=== PATIENT | male | born 1955 | race Caucasian/White ===

== ENCOUNTER 2020-08-24 03:19 | Inpatient (IN) | payer OTHER, MEDICARE ==
[2020-08-24] VITALS (29 sets, daily range): BP systolic 136–180; BP diastolic 75–106
[~2020-08-24] VITALS: Ht 182.9 cm; Wt 82.9 kg
[2020-08-24 03:37] LABS: ABSOLUTE BASOPHILS 0.1 thou/uL (0.0-0.2); ABSOLUTE EOSINOPHILS 0.5 thou/uL (0.0-0.7); ABSOLUTE LYMPHOCYTES 3.4 thou/uL (0.8-5.3); ABSOLUTE MONOCYTES 0.9 thou/uL (0.0-1.2); ABSOLUTE NEUTROPHILS 6.3 thou/uL (1.6-8.1); BASOPHILS 0.8 %; EOSINOPHILS 4.6 %; HEMATOCRIT 47.3 % (42.0-52.0); HEMOGLOBIN 15.6 gm/dL (14.0-18.0); LYMPHOCYTES 30.2 %; MCH 27.1 pg (26.0-34.0); MCV 82.1 fL (80.0-100.0); MONOCYTES 7.7 %; MPV 7.3 fl. (7.2-11.1); NUCLEATED RBCS 0 /100WBC; PLATELET COUNT* 266 thou/uL (150-400); POLYS 56.7 %; RBC 5.76 mil/uL (4.50-6.00); RDW-CV 15.1 % (10.5-14.5); WBC 11.1 thou/uL (4.0-11.0)
[2020-08-24 03:50] LABS: CALCIUM 9.7 mg/dL (8.5-10.1); CREATININE 1.2 mg/dL (0.6-1.3); POTASSIUM 3.3 mmol/L (3.5-5.1)
[2020-08-24 03:55] LABS: ALBUMIN 3.4 g/dL (3.4-5.0); MAGNESIUM 2.1 mg/dL (1.8-2.4); TOTAL BILIRUBIN 0.9 mg/dL (<0.1-1.0); TOTAL PROTEIN 8.1 g/dL (6.4-8.2)
[2020-08-24 03:57] LABS: APTT 24.3 Seconds (25.0-31.3); PROTIME 10.8 Seconds (9.20-11.50)
[2020-08-24 04:28] LABS: URINE BILIRUBIN NEGATIVE (Negative); URINE BLOOD NEGATIVE (Negative); URINE CLARITY CLEAR; URINE COLOR YELLOW; URINE GLUCOSE-RANDOM 3+ (Negative); URINE KETONES NEGATIVE (Negative); URINE LEUKOCYTES-REFLEX NEGATIVE (Negative); URINE NITRITE-REFLEX NEGATIVE (Negative); URINE PROTEIN NEGATIVE (Negative); URINE UROBILINOGEN 0.2 E.U./dl (0.2-1.0)
[2020-08-24] MEDS ORDERED: METFORMIN HCL500 M3 PO (04:32)
[2020-08-24] MEDS ORDERED: TRESIBA100 UNIT/1 SUBQ (04:32)
[2020-08-24] MEDS ORDERED: FARXIGA5 MG PO (04:32)
[2020-08-24] MEDS ORDERED: PEPCID20 MG PO (04:32)
[2020-08-24 07:48] LABS: CHOLESTEROL 176 mg/dL (<200); HDL CHOLESTEROL 45 mg/dL (>40); LDL CHOLESTEROL 110 mg/dL (<100); TC:HDL 3.9 Ratio (Not establshd); TRIGLYCERIDE 105 mg/dL (<150); VLDL 21 mg/dL (<40)
[2020-08-24 07:56] LABS: SERUM ASSESSMENT Clear
--- NOTE | 2020-08-24 10:20 | EKG ---
[place] [address] ELECTROCARDIOGRAM REPORT Name: ANTONELLA AMOR Room: [address] ADM IN [facility].#: [id number] Admission: 08/24/20 Attend Phys: Diego Huff, Discharge: Date of : 53 Date of Service: 08/24/20 0425 Report #: [id number] THIS REPORT FOR: //name// [facility] ED Test Date: 2020-08-24 Test Time: 04:25:54 Pat Name: ANTONELLA AMOR Department: Room: [facility] Gender: M Mangle Feeder: ARNOLDO : 1955 Requested By: Andreea Adams Order Number: [id number] MD: Jamal Ace Measurements Intervals [place] Rate: 96 P: 82 TN: 148 QRS: 124 QRSD: 91 T: 57 QT: 345 QTc: 436 Interpretive Statements Sinus rhythm Probable left atrial enlargement Right axis deviation No previous ECG available for comparison Electronically Signed On 08-24-2020 10:20:07 CDT by Jamal Ace [email or web address] <ELECTRONICALLY SIGNED> By: Jamal Ace MD, [facility] 08/24/20 1020 0425 0425 Jamal Ace MD, [facility] /EPI
--- NOTE | 2020-08-24 17:32 | 2DMMODE ---
[place] [address] 2 D/M-MODE ECHOCARDIOGRAM Name: ANTONELLA AMOR Room: [address] IN [facility]#: [id number] Admission: 08/24/20 Attend Phys: Diego Huff, Discharge: Date of : 53 Date of Service: 08/24/20 1731 Report #: [id number] THIS REPORT FOR: cc: Garcia Flor MD, James A. MD Liston, Michael J. MD [facility] ~ APPROVED REPORT Study performed: 08/24/2020 10:22:03 EXAM: Comprehensive 2D, Doppler, and color-flow Echocardiogram Patient Location: In-Patient Room #: [facility] Status: routine BSA: 2.02 HR: 81 bpm BP: 164/94 mmHg Rhythm: NSR Indications CVA/TIA Echo Enhancing Agent Indication: Rule out Shunt Agent(s) / Amount(s) Used: Agitated Saline 10 cc 2D Dimensions IVSd: 12.33 (7-11mm) LVOT Diam: 20.69 (18-24mm) LVDd: 43.57 mm PWd: 9.29 (7-11mm) Ascending Ao: 26.51 (22-36mm) LVDs: 29.45 (25-40mm) Volumes Left Atrial Volume (Systole) LA ESV Index: 22.30 mL/m2 Aortic Valve AoV Peak Berto.: 1.21 m/s AO Peak Gr.: 5.86 mmHg LVOT Max P.00 mmHg AO Mean Gr.: 3.29 mmHg LVOT Mean P.43 mmHg LVOT Max V: 0.87 m/s AO V2 VTI: 21.52 cm LVOT Mean V: 0.55 m/s PETER (VTI): 2.62 cm2 LVOT V1 VTI: 16.76 [place] [address] 2 D/M-MODE ECHOCARDIOGRAM Name: ANTONELLA AMOR Room: [address] IN [facility]#: [id number] Admission: 08/24/20 Attend Phys: Diego Huff, Discharge: Date of : 53 Date of Service: 08/24/20 1731 Report #: [id number] Mitral Valve E/A Ratio: 1.05 MV Decel. Time: 193.07 ms MV E Max Berto.: 0.77 m/s MV PHT: 55.99 ms MVA (PHT): 3.93 cm2 TDI E/Lateral E': 8.56 E/Medial E': 7.70 Medial E' Berto.: 0.10 m/s Lateral E' Berto.: 0.09 m/s Pulmonary Valve PV Peak Berto.: 0.85 m/s PV Peak Gr.: 2.89 mmHg Left Ventricle The left ventricle is normal size. There is normal LV segmental wall motion. There is normal left ventricular wall thickness. Left ventricular systolic function is normal. LVEF is 60-65%. Transmitral Doppler flow pattern suggests impaired LV relaxation. Right Ventricle The right ventricle is normal size. The right ventricular systolic function is normal. Atria The left atrium size is normal. The interatrial septum is intact with no evidence for an atrial septal defect. The right atrium size is normal. Aortic Valve Mild aortic valve sclerosis. No aortic regurgitation is present. There is no aortic valvular stenosis. Mitral Valve The mitral valve is normal in structure. Trace mitral regurgitation. No evidence of mitral valve stenosis. Tricuspid Valve The tricuspid valve is normal in structure. Unable to assess PA pressure. Trace tricuspid regurgitation. Pulmonic Valve The pulmonary valve is normal in structure. There is no pulmonic [place] [address] 2 D/M-MODE ECHOCARDIOGRAM Name: ANTONELLA AMOR Room: [address] IN [facility]#: [id number] Admission: 08/24/20 Attend Phys: Diego Huff, Discharge: Date of : 53 Date of Service: 08/24/20 1731 Report #: [id number] Great Vessels The aortic root is normal in size. IVC is normal in size and collapses >50% with inspiration. Pericardium There is no pericardial effusion. <Conclusion> The left ventricle is normal size. There is normal left ventricular wall thickness. Left ventricular systolic function is normal. LVEF is 60-65%. Transmitral Doppler flow pattern suggests impaired LV relaxation. The interatrial septum is intact with no evidence for an atrial septal defect. Mild aortic valve sclerosis. Trace mitral regurgitation. Trace tricuspid regurgitation. IVC is normal in size and collapses >50% with inspiration. <ELECTRONICALLY SIGNED> By: Baltazar Vanessa MD, FACC 08/24/20 173 173 173 Baltazar Vanessa MD, FACC /INF
[2020-08-25] VITALS (16 sets, daily range): BP systolic 134–170; BP diastolic 72–94
[2020-08-25 04:17] LABS: HEMATOCRIT 45.9 % (42.0-52.0); MCHC 32.6 g/dL (28.0-37.0); MPV 7.4 fl. (7.2-11.1); RBC 5.54 mil/uL (4.50-6.00); RDW-CV 15.6 % (10.5-14.5); WBC 12.5 thou/uL (4.0-11.0)
[2020-08-25 04:29] LABS: CALCIUM 8.6 mg/dL (8.5-10.1); CREATININE 0.9 mg/dL (0.6-1.3); MAGNESIUM 1.9 mg/dL (1.8-2.4); POTASSIUM 3.1 mmol/L (3.5-5.1)
[2020-08-26 00:45] VITALS: BP 145/80
[2020-08-26 04:58] VITALS: BP 156/87
[2020-08-26 08:00] VITALS: BP 134/74
[2020-08-26] MEDS ORDERED: LIPITOR 40 MG T40 M1 PO (08:57)
[2020-08-26] MEDS ORDERED: COLACE 100 MG100 MG PO (08:57)
[2020-08-26] MEDS ORDERED: ASA81BEC PO (08:57)
[2020-08-26] MEDS ORDERED: PLAVIX 75 MG TA75 M1 PO (08:57)
[2020-08-26 12:24] VITALS: BP 137/76
[2020-08-26 16:44] VITALS: BP 165/91
[2020-08-26 20:00] VITALS: BP 157/88
[2020-08-27] VITALS (7 sets, daily range): BP systolic 137–158; BP diastolic 73–96
[2020-08-28 04:10] LABS: HEMATOCRIT 47.2 % (42.0-52.0); HEMOGLOBIN 15.3 gm/dL (14.0-18.0); MCH 26.9 pg (26.0-34.0); MCHC 32.3 g/dL (28.0-37.0); MCV 83.2 fL (80.0-100.0); MPV 7.4 fl. (7.2-11.1); RBC 5.68 mil/uL (4.50-6.00); RDW-CV 15.3 % (10.5-14.5); WBC 11.7 thou/uL (4.0-11.0)
[2020-08-28 04:33] LABS: CALCIUM 8.6 mg/dL (8.5-10.1); MAGNESIUM 1.8 mg/dL (1.8-2.4)
[2020-08-28 05:24] VITALS: BP 145/86
[2020-08-28 08:00] VITALS: BP 180/98
[2020-08-28 12:00] VITALS: BP 154/86
[2020-08-28 16:06] LABS: CREATININE, URINE 0.57 g/L (0.30-3.00)
--- NOTE | 2020-08-29 19:10 | CON ---
[facility] [address] [place] [address] CONSULTATION Name: ANTONELLA AMOR Room: [address] IN .R.#: [id number] Admission: 08/24/20 Attend Phys: Diego Huff MD Discharge: 08/28/20 Date of : 53 Report #: [id number] THIS REPORT FOR: cc: Garcia Flor MD, James A. MD ~ Shakir Elizalde MD DATE OF SERVICE: 08/24/2020 HISTORY OF PRESENT ILLNESS: This is a 65-year-old male patient for whom a consultation was requested for stroke. I talked to Emergency Room, Dr. Adams before, and Dr. Adams couple of times. I talked to admitting doctor, Dr. Crews before and after seeing the patient. I talked to the night nurse. I also talked to the day nurse. I reviewed the films with the radiologist. I called the patient's and took the history from her and subsequently I got the MRI and discussed that with her. The history is summarized in the patient's ER notes and indicates that the patient was last seen well at 12:30 and then he woke up with acute right hemiplegia and aphasia. He was within TPA window for 4-1/2 hour. I talked to Dr. Adams and asked her to look for any contraindication and exclusion criteria and if none is found, then he should be given TPA and should be evaluated for any thrombus. This patient received TPA. The patient had a CT angiogram of the head and neck, which I reviewed with the radiologist. The patient did not have a thrombus, which requires any thrombectomy, but the vertebral artery systems appeared to be having some stenosis, and I got an MRI done for comparison and that will be described later. REVIEW OF SYSTEMS: Positive for diabetes. He used to take an aspirin at one time, but for some reason he stopped taking it. He is a diabetic, but does not check his blood sugar very often. It does not look like he has any other major vascular risk factor. He was not hypoglycemic when the ambulance people came in and; in fact, his blood sugar was about 200 at that time. That was his relevant 14-point review of system. PAST MEDICAL HISTORY: Negative for any stroke. FAMILY HISTORY: Unremarkable. SOCIAL HISTORY: As I understand, he does not smoke or abuse alcohol. PHYSICAL EXAMINATION: Indicates he is alert. His speech is hesitant, but he is able to talk some. He talks softly, but he says he always talks [place], [place] [address] CONSULTATION Name: ANTONELLA AMOR Room: [address]#: [id number] Admission: 08/24/20 Attend Phys: Diego Huff MD Discharge: 08/28/20 Date of : 53 Report #: [id number] does take him effort to bring his words out. But most of the time, he is able to bring his word out, but on other occasion, he hesitates. This is an improvement. He is weak in the right upper and right lower extremity, but apparently that is improved and the strength is about 3/5. He was still able to do reasonably well with position sense. There is no carotid bruit. There is no meningeal sign. Cardiac examination does not appear to be showing any atrial fibrillation. I got a stat MRI of the brain done. I also reviewed those films and the report and it does demonstrate finding consistent with lacunar CVA subcortical area on the left side, which will correlate with the patient's clinical symptoms. At first, I talked to the patient himself and subsequently to the patient's . IMPRESSION AND PLAN: The patient has a lacunar cerebrovascular accident. Lacunar cerebrovascular accident can fluctuate for several days. Many times, the patient becomes completely paralyzed. In the ch[facility], lacunar cerebrovascular accident has a better prognosis for recovery than hemispheric cerebrovascular accident. Rehabilitation consult is already pending and we will see what they say. The patient needs further workup for secondary stroke prophylaxis. If a repeat CT scan does not show any bleed after 24 hours, we can probably put him on a combination of aspirin and Plavix for 30 days. He may need to be on statin depending upon the results of his cholesterol. In spite of the fact that he has diabetes, I do not see any other marked predisposing factors and I will probably check him for any other risk factors, which I ordered. Echocardiogram is also pending. He may need and rehab and rehab consult is already pending. More than 70 minutes of time was spent taking care of this patient today and majority was spent counseling and coordinating and as summarized above. Thank you very much for this referral. <ELECTRONICALLY SIGNED> By: Shakir Elizalde MD 08/29/201909 165Shakir Elizalde MD /nt
== END 2020-08-28 17:45 | DRG 62 ==
LOC: M.ERS 03:19 → M.ICU 05:22 → M.TBA-ER 05:22 → M.ICU 05:59 → M.2W 08-25 14:30
PROVIDERS: Internal Medicine; Personal Emergency Response Attendant; Psychiatry & Neurology Neuromuscular Medicine; ADMIT Internal Medicine; ATTEND Internal Medicine
DX: I63.89 Other cerebral infarction (principal); G81.91 Hemiplegia, unspecified affecting right dominant side; K21.9 Gastro-esophageal reflux disease without esophagitis; E11.65 Type 2 diabetes mellitus with hyperglycemia; E87.6 Hypokalemia; I10 Essential (primary) hypertension; D72.829 Elevated white blood cell count, unspecified; Z20.822 Contact with and (suspected) exposure to COVID-19; Z79.4 Long term (current) use of insulin; Z79.899 Other long term (current) drug therapy; Z88.1 Allergy status to other antibiotic agents; Z88.0 Allergy status to penicillin; Z88.2 Allergy status to sulfonamides; Z88.8 Allergy status to other drugs, medicaments and biological substances